=== PATIENT | female | born 1980 | race Caucasian/White ===

== ENCOUNTER 2016-05-10 11:52 | Inpatient (IN) | payer OTHER ==
[~2016-05-10] VITALS: Ht 157.6 cm; Wt 71.8 kg
[~2016-05-10 11:52] MED LIST: CLARITIN 1010 MG/TAB PO; COLACE 100100 MG/CAP PO; MOTRIN 600600 MG/TAB PO; MUCINEX 60600 MG/TA1 PO; PEPCID 20MG TAB20 MG; PERCOCET 325 MG1 TA2 PO; PRENATAL VITAMI1 TA5 PO; PRENATAL1 TA1 PO; PRENATAL1 TA3 PO; PROCARDIA XL 3030 MG PO; ZANTAC 7575 MG PO
[2016-06-08] MEDS ORDERED: PROFERRIN ES12 MG PO (18:28)
[2016-06-08] MEDS ORDERED: PEPCID 20MG TAB20 MG PO (18:30)
[2016-06-10] VITALS (18 sets, daily range): BP systolic 101–122; BP diastolic 55–81; PULSE 60–87; TEMP 97.5–98.4
[2016-06-10 09:43] LABS: BASO % 0.4 % (0.0-2.0); EOS # 0.2 (0.0-0.7); EOS % 1.7 % (0-4.0); GRAN # 6.9 (1.4-6.5); GRAN % 70.2 % (42.2-75.2); HEMATOCRIT 38.8 % (37.0-47.0); HEMOGLOBIN 13.2 g/dl (12.5-16.0); LYMPH # 2.1 (1.2-3.4); LYMPH % 21.2 % (20.0-51.0); MEAN CELL VOLUME 90 fl (80.0-100.0); MEAN CORPUSCULAR HEMOGLOBIN 31 pg (27.0-31.0); MEAN CORPUSCULAR HGB CONC 34 g/dl (33.0-37.0); MEAN PLATELET VOLUME 11.5 fl (7.4-10.4); MONO # 0.6 (0.1-0.6); MONO % 6.1 % (1.7-9.3); PLATELET COUNT 214 K/mm3 (130-400); RED BLOOD COUNT 4.33 M/mm3 (4.10-5.30); REDCELL DISTRIBUTION WIDTH-CV 13.7 % (11.5-14.5); WHITE BLOOD COUNT 9.8 K/mm3 (4.8-10.8)
[2016-06-11] VITALS: BP 108/65; PULSE 69
[2016-06-11 04:00] VITALS: BP 105/70; PULSE 70; TEMP 98.7
[2016-06-11 06:30] VITALS: BP 92/55; PULSE 81; TEMP 98.5
[2016-06-11] MEDS ORDERED: MOTRIN 600600 MG/TAB PO (10:51)
[2016-06-11] MEDS ORDERED: PERCOCET 325 MG1 TA2 PO (10:52)
[2016-06-11 16:20] VITALS: BP 93/58; PULSE 89; TEMP 98.5
[2016-06-11 19:45] VITALS: BP 108/66; PULSE 86; TEMP 98.9
[2016-06-12 07:00] VITALS: BP 107/79; PULSE 82; TEMP 98.2
[2016-06-12 13:00] VITALS: BP 108/62; PULSE 78; TEMP 98.4
[2016-06-12 15:25] VITALS: BP 106/83; PULSE 79; TEMP 97.8
[2016-06-12 19:15] VITALS: BP 115/69; PULSE 75; TEMP 98.4
[2016-06-13 07:35] VITALS: BP 116/88; PULSE 65; TEMP 98.4
[2016-06-13] MEDS ORDERED: AMOXICILLIN 8751 TAB PO (08:43)
[2016-06-13] MEDS ORDERED: ADALAT CC30 MG PO (08:43)
== END 2016-06-13 16:25 | disposition home or self-care (01) | DRG 765 ==
LOC: EDSTATUS 06-10 06:19 → LDR 06-10 06:20 → OB 06-10 08:00 → LDRO 06-10 20:41 → OB 06-13 16:25
PROVIDERS: Obstetrics & Gynecology
PROC: 10D00Z1 Extraction of Products of Conception, Low, Open Approach (ICD-10-PCS; principal; 2016-06-10)
DX: O34.211 Maternal care for low transverse scar from previous cesarean delivery (principal); L03.311 Cellulitis of abdominal wall; O86.0 Infection of obstetric surgical wound; N85.8 Other specified noninflammatory disorders of uterus; O48.0 Post-term pregnancy; O13.5 Gestational [pregnancy-induced] hypertension without significant proteinuria, complicating the puerperium; Z3A.40 40 weeks gestation of pregnancy; Z37.0 Single live birth
CPT/HCPCS: J1580; J1885; J2270; J2405; J2590; J7120

== ENCOUNTER 2016-06-08 17:58 | Outpatient (CLI) | payer OTHER ==
[~2016-06-08] VITALS: Ht 157.5 cm; Wt 71.8 kg
[2016-06-08 18:10] VITALS: BP 111/70; PULSE 75; TEMP 98.5
[2016-06-08] MEDS ORDERED: PROFERRIN ES12 MG PO (18:28)
[2016-06-08 18:30] VITALS: BP 111/70; PULSE 75; TEMP 98.5
[2016-06-08] MEDS ORDERED: PEPCID 20MG TAB20 MG PO (18:30)
[2016-06-08 19:10] VITALS: BP 114/58; PULSE 78
== END 2016-06-08 20:40 | disposition home or self-care (01) ==
LOC: LDRO 17:58
DX: O47.1 False labor at or after 37 completed weeks of gestation (principal); Z3A.39 39 weeks gestation of pregnancy

== ENCOUNTER 2016-08-11 07:15 | Day surgery (SDC) | payer OTHER ==
[~2016-08-11] VITALS: Ht 157.5 cm; Wt 63.5 kg
[~2016-08-11 07:15] MED LIST changes: +ADALAT CC30 MG PO; +AMOXICILLIN 8751 TAB PO; +PEPCID 20MG TAB20 MG PO; +PROFERRIN ES12 MG PO
[2016-08-11] MEDS ORDERED: NASACORT OTC NS (07:37)
[2016-08-11 07:52] VITALS: BP 94/66; PULSE 67; TEMP 97.6
[2016-08-11 08:40] VITALS: BP 105/59; PULSE 94; TEMP 97.8
[2016-08-11 08:55] VITALS: BP 108/77; PULSE 82
[2016-08-11 09:10] VITALS: BP 102/68; PULSE 71
[2016-08-11 09:25] VITALS: BP 99/56; PULSE 81
[2016-08-11 11:08] VITALS: BP 97/66; PULSE 82
== END 2016-08-11 09:45 | disposition home or self-care (01) ==
LOC: SDCO 07:15
DX: K29.80 Duodenitis without bleeding (principal); K21.9 Gastro-esophageal reflux disease without esophagitis
CPT/HCPCS: OP; J2250; J3010; J7030